=== PATIENT | female | born 1980 | race Caucasian/White ===

== ENCOUNTER 2018-03-05 12:13 | Day surgery (SDC) | payer MEDICAID ==
[~2018-03-05] VITALS: Ht 167.6 cm; Wt 61.2 kg
--- NOTE | ~2018-03-05 | OP ---
PATIENT NAME: PIERO BENITEZ MEDICAL RECORD: [id number] :82 LOCATION:[facility] ADMISSION DATE: SURGEON: DIANNA KWOK MD DATE OF OPERATION: 03/05/2018 PREOPERATIVE DIAGNOSIS: Bilateral carpal tunnel syndrome. POSTOPERATIVE DIAGNOSIS: Bilateral carpal tunnel syndrome. PROCEDURE: Bilateral carpal tunnel release. SURGEON: Dianna Kwok MD ANESTHESIA: General. INTRAOPERATIVE COMPLICATIONS: None. SUMMARY OF PATHOLOGIC FINDINGS: The patient has tight transverse carpal ligaments in both upper extremities consistent with preoperative EMGs and NCVs. OPERATIVE SUMMARY IN DETAIL: After obtaining the appropriate preoperative orthopedic surgery consent as well as anesthetic consultation, evaluation, and clearance, the patient was brought to the operating room and placed on the operating table in the supine position. After general laryngeal mask was administered, tourniquet was placed about the proximal aspect of bilateral upper extremities. Bilateral upper extremities were then prepped and draped in routine sterile fashion simultaneously. The left upper extremity was approached first. Left upper extremity was elevated, exsanguinated, and tourniquet was inflated to 250 mmHg. An incision was made in the mid palmar crease in line with the fourth metacarpal ray, taken down to the level of the transverse metacarpal ligament. This was identified and dissected free using the [place] elevator. Neeraj light knife was then used to incise the entire transverse carpal ligament. Having completed this, the wound was copiously irrigated and closed with 4-0 Prolene. The area was locally anesthetized with 0.25% Marcaine. Attention was then turned to the right upper extremity. Again, arm was elevated, exsanguinated, and tourniquet was inflated to 250 mmHg. Again, the incision was made along the fourth metacarpal ray, taken down to the level of the transverse carpal ligament distally. Median nerve was identified. Orlando elevator was used to separate the median nerve and transverse carpal ligament. Transverse carpal ligament was released in its entirety using Neeraj light knife. The wound was irrigated and closed with 4-0 Prolene. Again, it was anesthetized locally with 0.25% Marcaine. Sterile dressings were applied. Tourniquet was deflated on both sides right immediately after the right was done. Sterile dressings were placed. The patient was awakened and taken to the recovery room in stable condition. All final needle and sponge counts were correct. TRANSINT:[id number] Voice Confirmation ID: [id number] DOCUMENT ID: [id number] OPERATIVE REPORT [id number] PIERO BENITEZ MD, DIANNA LOPEZ at 1331 CC: [id number] DICTATION DATE: 03/05/18 1602 [employer] [facility]: 03/05/18 193 [facility] 03/05/18 [place] [id number] [place] [id number]
[~2018-03-05 12:13] MED LIST: AMITRIPTYLINE150 MG PO; PROZAC40 MG PO; REQUIP XL2 MG PO
[2018-03-05 12:37] LABS: HEMATOCRIT 33.2 % (36.0-48.0); HEMOGLOBIN 10.7 g/dL (12-16); MCH 27.3 pg (26.0-34.0); MCHC 32.2 g/dL (31.0-37.0); MCV 84.7 fL (80.0-100.0); MEAN PLATELET VOLUME 10.3 fL (7.4-10.4); RBC 3.92 10x6/uL (4.00-5.40); WBC 10.4 10x3/uL (4.8-10.8)
[2018-03-05] MEDS ORDERED: TRAZODONE HCL150 MG PO (14:32)
[2018-03-05 14:39] VITALS: BP 104/54; Ht 167.6 cm; Wt 61.2 kg
[2018-03-05] MEDS ORDERED: HYDROCODONE-APA1 TAB PO (15:54)
== END 2018-03-05 18:10 | disposition home or self-care (01) ==
LOC: D.OPS 12:13 → D.PAN 16:15 → D.OPS 18:10
PROVIDERS: Anesthesiology
DX: G56.03 Carpal tunnel syndrome, bilateral upper limbs (principal); Z01.812 Encounter for preprocedural laboratory examination